=== PATIENT | female | born 1965 | race Native Hawaiian/Other Pacific Islander ===

== ENCOUNTER 2021-01-01 09:57 | Outpatient (REF) | payer OTHER, SELFPAY ==
[2021-01-01 12:12] LABS: TSH reflex Free T4 1.97 uIU/mL (0.32-4.0)
[2021-01-01 12:14] LABS: Alanine Aminotransferase 26 U/L (0-31); Albumin Level 4.4 g/dL (3.5-5.0); Alkaline Phosphatase 127 U/L (39-117); Anion Gap 16 (12-20); Aspartate Amino Transferase 35 U/L (5-31); Bilirubin Total 0.7 mg/dL (0.0-1.0); Blood Urea Nitrogen 10 mg/dL (9-16); Calcium 9.7 mg/dL (8.4-10.2); Carbon Dioxide 23 mmol/L (22-29); Chloride 106 mmol/L (96-108); Cholesterol 252 mg/dL; Estimated Glomerular Filt Rate > 60; Glucose Fasting 89 mg/dL (60-99); HDL Cholesterol 48 mg/dL; LDL Cholesterol Calculated 182 mg/dl; Potassium 4.4 mmol/L (3.3-5.1); Sodium 141 mmol/L (135-145); Total Protein 8.2 g/dL (6.5-8.0); Triglycerides 114 mg/dL
== END 2021-01-01 09:58 | disposition home or self-care (01) ==
LOC: HO.HMGCLDS 09:57
PROVIDERS: PCP Nurse Practitioner Family; Visit Provider Nurse Practitioner Family
DX: E78.5 Hyperlipidemia, unspecified (principal); K29.70 Gastritis, unspecified, without bleeding
CPT/HCPCS: 36415; 80053; 80061; 84443

== ENCOUNTER 2021-01-11 16:10 | Outpatient (REF) | payer OTHER, SELFPAY ==
[2021-01-11 17:20] LABS: Gamma Glutamyl Transpeptidase 76 U/L (7-33)
== END 2021-01-11 16:11 | disposition home or self-care (01) ==
LOC: HO.LAB 16:10
PROVIDERS: PCP Nurse Practitioner Family; Visit Provider Nurse Practitioner Family
DX: R74.8 Abnormal levels of other serum enzymes (principal)
CPT/HCPCS: 36415; 82977

== ENCOUNTER 2021-01-21 08:06 | Outpatient (REF) | payer OTHER, SELFPAY ==
--- NOTE | ~2021-01-21 | US_ITS ---
EXAMINATION: US ABDOMEN COMPLETE CLINICAL INFORMATION: Abnormal elevated liver serum enzymes. COMPARISON: CT abdomen and pelvis 11/14/2013. TECHNIQUE: Real-time imaging of the abdominal viscera. FINDINGS: PANCREAS: Normal. ABDOMINAL AORTA: The proximal, mid, and distal segments are normal in caliber. INFERIOR VENA CAVA: Visualized portions are normal. LIVER: Normal. The liver is normal in size. The liver contour is normal. Parenchymal echogenicity is normal. No focal hepatic lesion. There is no intrahepatic biliary duct dilatation seen. GALLBLADDER: Surgically absent. COMMON BILE DUCT: Normal in caliber measuring 0.3 cm in diameter. RIGHT KIDNEY: There is an echogenic stone lower pole measuring 0.30 x 0.24 x 0.40 cm. No hydronephrosis or focal parenchymal lesions. The kidney measures 9.4 cm in maximum dimension. LEFT KIDNEY: There are multiple small echogenic non-shadowing, non-twinkle foci seen. No hydronephrosis. No renal calculi or focal parenchymal lesions. The kidney measures 9.3 cm in maximum dimension. SPLEEN: Normal. The spleen measures 7.4 cm in maximum dimension. FREE FLUID: None. US/US abdomen complete IMPRESSION: Nonobstructive echogenic 4 mm calculi lower pole right kidney. This was visualized on the previous CT abdomen exam 11/14/2013. Several multiple echogenic foci in the left kidney, question vascular calcifications or tiny stones. The rest of the abdominal ultrasound is unremarkable.
== END 2021-01-21 08:07 | disposition home or self-care (01) ==
LOC: HO.HMGCX 08:06
PROVIDERS: PCP Nurse Practitioner Family; Visit Provider Nurse Practitioner Family
DX: R74.8 Abnormal levels of other serum enzymes (principal)
CPT/HCPCS: 76700

== ENCOUNTER → 2021-01-27 11:43 | Outpatient (BNVA) | payer OTHER, SELFPAY | PROVIDERS: PCP Nurse Practitioner Family; Visit Provider Urology ==

== ENCOUNTER 2021-02-26 14:10 | Outpatient (REF) | payer OTHER, SELFPAY ==
[2021-02-26 16:46] LABS: Alanine Aminotransferase 32 U/L (0-31); Albumin Level 4.2 g/dL (3.5-5.0); Alkaline Phosphatase 175 U/L (39-117); Aspartate Amino Transferase 30 U/L (5-31); Bilirubin Direct < 0.2 mg/dL (0.0-0.5); Bilirubin Total 0.4 mg/dL (0.0-1.0); Total Protein 7.8 g/dL (6.5-8.0)
== END 2021-02-26 14:11 | disposition home or self-care (01) ==
LOC: HO.HMGCLDS 14:10
PROVIDERS: PCP Nurse Practitioner Family; Visit Provider Nurse Practitioner Family
DX: R74.8 Abnormal levels of other serum enzymes (principal)
CPT/HCPCS: 36415; 80076

== ENCOUNTER 2021-07-20 16:22 | Outpatient (REF) | payer OTHER, SELFPAY ==
--- NOTE | ~2021-07-20 | US_ITS ---
EXAMINATION: US RETROPERITONEAL LIMITED (RENAL ONLY) CLINICAL INFORMATION: Calculus of kidney. COMPARISON: Ultrasound abdomen complete dated 01/21/2021. CT abdomen and pelvis without contrast dated 11/14/2013. TECHNIQUE: Real-time imaging of the kidneys. FINDINGS: RIGHT KIDNEY: 9.0 x 4.3 x 4.9 cm (SAG x AP x TRV). The kidney is normal in size, contour, and echogenicity. Renal cortical thickness is normal. There is a 4 mm stone in the lower pole. No focal parenchymal lesions or hydronephrosis. LEFT KIDNEY: 9.1 x 5.4 x 4.6 cm (SAG x AP x TRV). The kidney is normal in size, contour, and echogenicity. Renal cortical thickness is normal. No calculi or focal parenchymal lesions. No hydronephrosis. US/US renal BI IMPRESSION: Right renal stone.
== END 2021-07-20 16:23 | disposition home or self-care (01) ==
LOC: HO.US 16:22
PROVIDERS: PCP Nurse Practitioner Family; Visit Provider Urology
DX: N20.0 Calculus of kidney (principal)
CPT/HCPCS: 76775

== ENCOUNTER 2021-10-29 16:32 | Outpatient (REF) | payer OTHER, SELFPAY ==
[2021-10-29 17:17] LABS: Influenza A PCR NEGATIVE (Negative); Influenza B PCR NEGATIVE (Negative); Resp Syncy Virus RNA Qual PCR NEGATIVE (Negative); SARS COV2 PCR INHOUSE NEGATIVE (Negative)
== END 2021-10-29 16:33 | disposition home or self-care (01) ==
LOC: HO.LNP 16:32
PROVIDERS: Visit Provider Internal Medicine
DX: Z20.822 Contact with and (suspected) exposure to COVID-19 (principal); R43.9 Unspecified disturbances of smell and taste
CPT/HCPCS: 0241U

== ENCOUNTER → 2021-12-09 08:35 | Outpatient (BNVA) | payer OTHER, SELFPAY | PROVIDERS: PCP Nurse Practitioner Family ==

== ENCOUNTER 2022-04-21 13:42 | Outpatient (REF) | payer OTHER, SELFPAY ==
--- NOTE | ~2022-04-21 | XR_ITS ---
EXAMINATION: XR CHEST CLINICAL INFORMATION: Cough COMPARISON: Rib radiograph from 12/19/2019 TECHNIQUE: 2 views of the chest were obtained. FINDINGS: Stable elevation left hemidiaphragm. No pneumothorax. Trachea is midline. No pneumothorax. Cardiomediastinal silhouette is not enlarged. No large pleural effusion. Degenerative changes of the thoracolumbar spine. Surgical clips in the right upper quadrant abdomen. Soft tissues are unremarkable. XR/XR chest 2V IMPRESSION: No acute cardiopulmonary process.
[2022-04-21 14:09] LABS: Binax Internal Control QC Valid; Binax Now Covid-19 Ag Negative (Negative); Binax Performed by: HO.BONILM
[2022-04-21 16:24] LABS: Hematocrit 38.1 % (37.0-47.0); Hemoglobin 12.3 g/dl (12.0-16.0); Mean Corpuscular HGB Conc 32.3 g/dl (31.0-35.0); Mean Corpuscular Hemoglobin 27.4 pg (27.0-33.0); Mean Corpuscular Volume 84.9 fL (80.0-98.0); Mean Platelet Volume 11.9 fL (9.4-12.3); Platelet Count 241 X10*3/uL (160-400); Red Blood Count 4.49 X10*6/uL (4.20-5.50); Red Cell Distribution Width 14.4 % (11.0-16.0); White Blood Count 7.6 X10*3/uL (4.8-10.8)
[2022-04-21 16:39] LABS: Anion Gap 13 (12-20); Blood Urea Nitrogen 16 mg/dL (9-16); Calcium 9.7 mg/dL (8.4-10.2); Carbon Dioxide 26 mmol/L (22-29); Chloride 102 mmol/L (96-108); Estimated Glomerular Filt Rate > 60; Glucose Random 102 mg/dL (60-115); Potassium 4.2 mmol/L (3.3-5.1); Sodium 137 mmol/L (135-145)
[2022-04-21 17:01] LABS: Thyroid Stimulating Hormone 1.47 uIU/mL (0.32-4.0)
== END 2022-04-21 13:43 | disposition home or self-care (01) ==
LOC: HO.HMGCX 13:42
PROVIDERS: Internal Medicine; PCP Nurse Practitioner Family; Visit Provider Nurse Practitioner Family
DX: Z20.822 Contact with and (suspected) exposure to COVID-19 (principal); R05.9 Cough, unspecified; J06.9 Acute upper respiratory infection, unspecified
CPT/HCPCS: 71046; 80048; 84443; 85027; 87811; C9803

== ENCOUNTER 2022-06-22 13:14 | Outpatient (REF) | payer OTHER, SELFPAY ==
[2022-06-22 16:29] LABS: MANUAL DIFF FLAG NO
[2022-06-22 16:39] LABS: Basophils Absolute Auto 0.1 X10*3/uL (0.0-0.2); Basophils Percent Auto 0.8 % (0-2); Eosinophils Absolute Auto 0.2 X10*3/uL (0.0-0.4); Eosinophils Percent Auto 2.3 % (0-4); Hematocrit 40.1 % (37.0-47.0); Hemoglobin 12.8 g/dl (12.0-16.0); Imm Gran Abs Auto 0.02 X10*3/uL (0.00-0.03); Imm Gran Pct Auto 0.3 % (0.0-0.4); Lymphocytes Absolute Auto 2.5 X10*3/uL (1.2-4.9); Lymphocytes Percent Auto 34.9 % (20-40); Mean Corpuscular HGB Conc 31.9 g/dl (31.0-35.0); Mean Corpuscular Hemoglobin 26.6 pg (27.0-33.0); Mean Corpuscular Volume 83.2 fL (80.0-98.0); Mean Platelet Volume 11.6 fL (9.4-12.3); Monocytes Absolute Auto 0.6 X10*3/uL (0.1-1.2); Monocytes Percent Auto 7.6 % (2-11); Neutrophils Absolute Auto 3.9 x10*3/uL (2.0-8.3); Neutrophils Percent Auto 54.1 % (45-73); Platelet Count 249 X10*3/uL (160-400); Red Blood Count 4.82 X10*6/uL (4.20-5.50); Red Cell Distribution Width 14.8 % (11.0-16.0); White Blood Count 7.3 X10*3/uL (4.8-10.8)
[2022-06-22 17:02] LABS: Alanine Aminotransferase 17 U/L (0-31); Albumin Level 4.4 g/dL (3.5-5.0); Alkaline Phosphatase 92 U/L (39-117); Anion Gap 14 (12-20); Aspartate Amino Transferase 18 U/L (5-31); Bilirubin Total 0.4 mg/dL (0.0-1.0); Blood Urea Nitrogen 16 mg/dL (9-16); Calcium 9.7 mg/dL (8.4-10.2); Carbon Dioxide 25 mmol/L (22-29); Chloride 104 mmol/L (96-108); Estimated Glomerular Filt Rate > 60; Glucose Random 86 mg/dL (60-115); Potassium 4.3 mmol/L (3.3-5.1); Sodium 139 mmol/L (135-145); Total Protein 7.9 g/dL (6.5-8.0)
[2022-06-22 17:12] LABS: TSH reflex Free T4 1.54 uIU/mL (0.32-4.0)
[2022-06-22 17:47] LABS: Folate > 20.0 ng/mL (> or = 4.0); Vitamin B12 533 pg/mL (200-900)
[2022-06-28 06:15] LABS: Vitamin B6 22.4 ng/mL (2.1-21.7)
== END 2022-06-22 13:15 | disposition home or self-care (01) ==
LOC: HO.HMGCLDS 13:14
PROVIDERS: PCP Nurse Practitioner Family; Visit Provider Nurse Practitioner Family
DX: L65.9 Nonscarring hair loss, unspecified (principal)
CPT/HCPCS: 36415; 80053; 82607; 82746; 84207; 84443; 85025

== ENCOUNTER 2022-06-30 10:49 | Outpatient (REF) | payer OTHER, SELFPAY | END 2022-06-30 10:50 | disposition home or self-care (01) | LOC: HO.HMGCLDS 10:49 | PROVIDERS: PCP Nurse Practitioner Family; Visit Provider Nurse Practitioner Family | DX: Z13.89 Encounter for screening for other disorder (principal) ==

== ENCOUNTER 2022-07-13 16:24 | Outpatient (REF) | payer OTHER, SELFPAY ==
--- NOTE | ~2022-07-13 | US_ITS ---
EXAMINATION: US RETROPERITONEAL LIMITED (RENAL ONLY) CLINICAL INFORMATION: Calculus of kidney. COMPARISON: Renal ultrasound 07/20/2021. Ultrasound abdomen complete 01/21/2021. CT abdomen and pelvis 11/14/2013. TECHNIQUE: Real-time imaging of the kidneys. FINDINGS: RIGHT KIDNEY: 9.2 x 3.3 x 4.3 cm (SAG x AP x TRV). The kidney is normal in size, contour, and echogenicity. Renal cortical thickness is normal. Echogenic nonobstructive stone in the lower pole measuring 3 x 3 mm. There is trace fullness of the kidney pelvis. No focal parenchymal lesions or hydronephrosis. LEFT KIDNEY: 9.5 x 6.1 x 4.3 cm (SAG x AP x TRV). The kidney is normal in size, contour, and echogenicity. Renal cortical thickness is normal. No calculi or focal parenchymal lesions. No hydronephrosis. US/US renal BI IMPRESSION: Nonobstructive echogenic stone lower pole right kidney measuring 3 x 3 mm. No caliectasis or hydronephrosis. The left kidney is unremarkable.
== END 2022-07-13 16:25 | disposition home or self-care (01) ==
LOC: HO.US 16:24
DX: N20.0 Calculus of kidney (principal)
CPT/HCPCS: 76775

== ENCOUNTER 2022-09-27 10:45 | Outpatient (REF) | payer OTHER, SELFPAY ==
[2022-09-27 14:19] LABS: Appearance Urine Clear; Color Urine Yellow; Glucose Urine UA Negative (Negative); Leukocyte Esterase Urine Small (1+) (Negative); Nitrite Urine Negative (Negative); UMIC TRIGGER UACC YES; Urine Blood Negative (Negative); Urine Ketones Negative (Negative); Urine Protein Negative (Neg-Trace)
[2022-09-27 14:24] LABS: Bacteria Urine 1+ (None Seen); Hyaline Casts Urine 0-2 /LPF (0-2); Squamous Epithelial Cell Urine 0-2 /HPF (0-2); UACC Culture Trigger YES; WBC Urine >50 /HPF (0-5)
[2022-09-27 14:31] LABS: MANUAL DIFF FLAG NO
[2022-09-27 14:40] LABS: Basophils Absolute Auto 0.1 X10*3/uL (0.0-0.2); Basophils Percent Auto 0.7 % (0-2); Eosinophils Absolute Auto 0.2 X10*3/uL (0.0-0.4); Eosinophils Percent Auto 2.5 % (0-4); Hematocrit 42.3 % (37.0-47.0); Hemoglobin 13.3 g/dl (12.0-16.0); Imm Gran Abs Auto 0.02 X10*3/uL (0.00-0.03); Imm Gran Pct Auto 0.3 % (0.0-0.4); Lymphocytes Absolute Auto 2.4 X10*3/uL (1.2-4.9); Lymphocytes Percent Auto 33.3 % (20-40); Mean Corpuscular HGB Conc 31.4 g/dl (31.0-35.0); Mean Corpuscular Hemoglobin 26.3 pg (27.0-33.0); Mean Corpuscular Volume 83.6 fL (80.0-98.0); Mean Platelet Volume 11.5 fL (9.4-12.3); Monocytes Absolute Auto 0.5 X10*3/uL (0.1-1.2); Neutrophils Absolute Auto 4.1 x10*3/uL (2.0-8.3); Neutrophils Percent Auto 56.2 % (45-73); Platelet Count 256 X10*3/uL (160-400); Red Blood Count 5.06 X10*6/uL (4.20-5.50); Red Cell Distribution Width 14.9 % (11.0-16.0); White Blood Count 7.3 X10*3/uL (4.8-10.8)
[2022-09-27 14:58] LABS: Alanine Aminotransferase 17 U/L (0-31); Albumin Level 4.5 g/dL (3.5-5.0); Alkaline Phosphatase 109 U/L (39-117); Anion Gap 15 (12-20); Aspartate Amino Transferase 18 U/L (5-31); Bilirubin Total 0.6 mg/dL (0.0-1.0); Blood Urea Nitrogen 14 mg/dL (9-16); Calcium 9.7 mg/dL (8.4-10.2); Carbon Dioxide 26 mmol/L (22-29); Chloride 104 mmol/L (96-108); Cholesterol 255 mg/dL; Estimated Glomerular Filt Rate > 60; Glucose Fasting 82 mg/dL (60-99); HDL Cholesterol 54 mg/dL; LDL Cholesterol Calculated 179 mg/dl; Potassium 4.4 mmol/L (3.3-5.1); Sodium 141 mmol/L (135-145); Triglycerides 112 mg/dL
[2022-09-27 15:11] LABS: TSH reflex Free T4 1.17 uIU/mL (0.32-4.0)
== END 2022-09-27 10:46 | disposition home or self-care (01) ==
LOC: HO.HMGCLDS 10:45
PROVIDERS: PCP Nurse Practitioner Family; Visit Provider Nurse Practitioner Family
DX: E78.5 Hyperlipidemia, unspecified (principal)
CPT/HCPCS: 36415; 80053; 80061; 81001; 84443; 85025; 87086; 87088; 87186

== ENCOUNTER 2022-10-28 13:20 | Outpatient (REF) | payer OTHER, SELFPAY ==
--- NOTE | ~2022-10-28 | MM_ITS ---
EXAMINATION: MM SCREENING DIGITAL BREAST TOMOSYNTHESIS, BILATERAL CLINICAL INFORMATION: Screening. Asymptomatic. The lifetime risk of breast cancer based on the Tyrer-Cuzick Model is 7%. COMPARISON: Mammography: 01/28/2017, 10/08/2014 TECHNIQUE: Digital breast tomosynthesis is performed in both the craniocaudal and mediolateral oblique views along with computer-aided detection (CAD). Synthesized 2D images are generated from the tomosynthesis. FINDINGS: There are scattered areas of fibroglandular density (ACR BI-RADS breast composition Category b). There are no significant masses, abnormal calcifications, or other abnormalities. Breast tissue composition borders on heterogeneously dense. There is no developing density or architectural abnormality. There are incidental intramammary nodes posterior upper outer right breast again noted. Skin contours are smooth. MM/MM tomosynthesis screening BI IMPRESSION: No mammographic evidence of malignancy. ASSESSMENT: BI-RADS 2: Benign RECOMMENDATION: Routine annual mammography screening. This patient's information was entered into a reminder system with a target due date for their next mammogram.
== END 2022-10-28 13:21 | disposition home or self-care (01) ==
LOC: HO.MAMMO 13:20
PROVIDERS: PCP Nurse Practitioner Family; Visit Provider Nurse Practitioner Family
DX: Z12.31 Encounter for screening mammogram for malignant neoplasm of breast (principal)
CPT/HCPCS: 77063; 77067

== ENCOUNTER 2023-03-22 10:39 | Outpatient (REF) | payer OTHER, SELFPAY ==
[2023-03-22 14:24] LABS: Appearance Urine Clear; Color Urine Yellow; Glucose Urine UA Negative (Negative); Leukocyte Esterase Urine Trace (Negative); Nitrite Urine Negative (Negative); Specific Gravity - Urine <= 1.005 (1.005-1.025); UMIC TRIGGER UA YES; Urine Blood Negative (Negative); Urine Ketones Negative (Negative); Urine Protein Negative (Neg-Trace)
[2023-03-22 14:32] LABS: Cholesterol 163 mg/dL; HDL Cholesterol 46 mg/dL; LDL Cholesterol Calculated 88 mg/dl; Triglycerides 147 mg/dL
[2023-03-22 14:35] LABS: Bacteria Urine None Seen (None Seen); Hyaline Casts Urine 0-2 /LPF (0-2); RBC Urine 0-2 /HPF (0-2); Squamous Epithelial Cell Urine 0-2 /HPF (0-2); WBC Urine 0-5 /HPF (0-5)
== END 2023-03-22 10:40 | disposition home or self-care (01) ==
LOC: HO.HMGCLDS 10:39
PROVIDERS: PCP Nurse Practitioner Family; Visit Provider Nurse Practitioner Family
DX: R35.0 Frequency of micturition (principal); E78.5 Hyperlipidemia, unspecified
CPT/HCPCS: 36415; 80061; 81001; 87086; 87088; 87186

== ENCOUNTER 2023-05-12 12:13 | Outpatient (REF) | payer OTHER, SELFPAY ==
--- NOTE | ~2023-05-12 | XR_ITS ---
EXAMINATION: XR SHOULDER, RIGHT CLINICAL INFORMATION: Strain, pain COMPARISON: None available. TECHNIQUE: Three views of the right shoulder. FINDINGS: The humeral head is well positioned over the intact glenoid. Glenohumeral joint space is normal. No arthritic deformity, fracture or subluxation. Acromioclavicular joint is normal. The subacromial space is normal. Scapula is normal. No calcium deposition within rotator cuff tendons. The visualized portion of the right lung is normal. XR/XR shoulder RT min 2V IMPRESSION: Normal right shoulder.
== END 2023-05-12 12:14 | disposition home or self-care (01) ==
LOC: HO.HMGCX 12:13
PROVIDERS: PCP Nurse Practitioner Family; Visit Provider Nurse Practitioner Family
DX: S46.911D Strain of unspecified muscle, fascia and tendon at shoulder and upper arm level, right arm, subsequent encounter (principal)
CPT/HCPCS: 73030

== ENCOUNTER 2023-09-25 15:18 | Outpatient (AMB) | payer OTHER, SELFPAY ==
--- NOTE | 2023-09-25 15:11 | MHC.PC.OV ---
Intake Visit Reasons: Covid Symptoms/ frequent Urination [phone] Intake Note: Covid positive since Monday. And boils on scalp that have been duplicating quickly. vaginal discharge thats been on and off for about 1 week, frequent urination and not sexually active. Allergies No Known Allergies Allergy (Verified 09/25/23 15:14) Medication List - Last Reconciled 09/25/23 by ALICIA Smtyh cyclobenzaprine 10 mg PO BEDTIME PRN sulfamethoxazole-trimethoprim 800-160 mg (Bactrim DS) 1 tab PO BID 3 days Tobacco use date assessed: 03/22/23 HPI Covid Symptoms/ frequent Urination [phone] HPI Details Pt c/o urinary frequency and dysuria. She denies any current fever, chills, hematuria, and flank pain. Will order UA and culture, though pt currently has COVID and cannot go to the lab. Will send bactrim. Pt tested positive for COVID on Monday. She reports doing better overall. 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 David Austin, Tita Richey, Isra Cordero and colleagues, with an educational chelsea from [employer]. Review of Systems Const Reports as per HPI Physical exam (Primary Care) Tobacco/Smoking Status: Tobacco use Status Tobacco use date assessed 03/22/23 09/25/23 15:17 Patient Tobacco Use Status Never used Tobacco 09/25/23 15:17 e-Cigarette/Vaping Use Never Used 09/25/23 15:17 Thrive Assessment: Date of Thrive Assessment Date Thrive assessed 06/23/22 09/25/23 15:17 Const General: cooperative Orientation/consciousness: patient oriented x3 Neuro General: patient oriented x3 Psych Appearance: grossly normal Mental Status: mental status grossly normal Speech and movement: Clear speech present Affect: normal affect Attitude: cooperative Thought process: Normal thought process present Thought content: Normal thought content present Insight: Good insight present (Psych) Judgement: Good judgement present (Psych) Telehealth Telehealth Location of provider rendering services: practice address Location of patient: address on file Patient Identification confirmed using: Name, : Yes Telehealth method: video Patient verbally consented to treatment: Yes Patient verbally consented to billing insurance company: Yes Patient informed of any privacy concerns related to visit: Yes Minutes spent on Phone/Video with Pt.: 10 Assessment and Plan Assessment & Plan (1) Urinary frequency: Code(s): R35.0 - Frequency of micturition Plan: UA/culture ordered, bactrim sent Plan The patient agreed to the use of a medical lab director for this encounter. Scribed for ALICIA Umanzor by Mago Segal medical lab director, on 09/25/2023 at 15:30 EST. Orders: Orders UA w Microscopic Today R35.0 - Frequency of micturition Urine Culture Today R35.0 - Frequency of micturition Medications: New sulfamethoxazole-trimethoprim 800-160 mg (Bactrim DS) 1 tab PO BID 6 tabs 0RF 3 days Coding Level of Care Code Tele Est Pt Level 3 (74542) Diagnoses Urinary frequency R35.0
== END 2023-09-25 16:50 | disposition home or self-care (01) ==
LOC: HO.HMGC 15:18
PROVIDERS: PCP Nurse Practitioner Family; Visit Provider Nurse Practitioner Family
DX: R35.0 Frequency of micturition (principal)
CPT/HCPCS: 99213

== ENCOUNTER 2023-10-02 14:09 | Outpatient (REF) | payer OTHER, SELFPAY ==
--- NOTE | ~2023-10-02 | XR_ITS ---
EXAMINATION: XR ABDOMEN KUB CLINICAL INDICATION: Renal calculi. COMPARISON: Renal ultrasound 07/13/2022. TECHNIQUE: AP view of the abdomen. FINDINGS: Surgical clips are present in the gallbladder fossa. There is a 3 mm sized calcification overlying the lower pole of the right kidney which could represent a 3 mm calculus seen on the 07/13/2022 ultrasound in the same location. The bowel gas pattern is normal with no evidence of ileus or obstruction. No unusual soft tissue calcifications are noted. The bones are unremarkable. XR/XR KUB IMPRESSION: Question of a 3 mm calculus in the lower pole of the right kidney.
[2023-10-02 15:19] LABS: Appearance Urine Clear; Color Urine Yellow; Glucose Urine UA Negative (Negative); Leukocyte Esterase Urine Trace (Negative); Nitrite Urine Negative (Negative); Specific Gravity - Urine <= 1.005 (1.005-1.025); UMIC TRIGGER UA YES; Urine Blood Negative (Negative); Urine Ketones Negative (Negative); Urine Protein Negative (Neg-Trace)
[2023-10-02 15:25] LABS: Bacteria Urine None Seen (None Seen); Hyaline Casts Urine 0-2 /LPF (0-2); RBC Urine 0-2 /HPF (0-2); Squamous Epithelial Cell Urine 0-2 /HPF (0-2); WBC Urine 0-5 /HPF (0-5)
== END 2023-10-02 14:10 | disposition home or self-care (01) ==
LOC: HO.LAB 14:09
PROVIDERS: PCP Nurse Practitioner Family; Visit Provider Urology
DX: N20.0 Calculus of kidney (principal); R35.0 Frequency of micturition
CPT/HCPCS: 74018; 81001; 87086; 87088; 87186

== ENCOUNTER 2023-10-06 09:28 | Outpatient (AMB) | payer OTHER, SELFPAY ==
--- NOTE | 2023-10-06 09:37 | A.OFFVIS_ITS ---
Intake Intake Visit Reasons: 1 yr nephrolithiasis follow up with KUB Intake Note: Patient presents today for a follow-up on Nephrolithiasis and KUB Results: Meds- None Allergies to Antibiotic- No Known Allergies Blood Thinner- None [employer] Manager Required: No Accompanied by: Self / Same As Patient Allergies No Known Allergies Allergy (Verified 10/06/23 09:47) HPI HPI Comments History of Present Illness Details Jessica is a 58-year-old female who presents today to the office for a follow-up. 10/06/2023? She is followed today for kidney stones. She was last seen by [employer] PARAPROFESSIONAL, Kamlesh Estrada for nephrolithiasis on 12/09/2021. Patient states that she is not on any medications at this time. She states that she is drinking 2 to 2.5 L of water daily. She also adds lemon to the water. Patient denies any urinary symptoms at this time Reviewed KUB -Xray - 10/02/23-- Right kidney 3 mm stone - unchanged from prior renal US 10/06/2023: Plan: Continue monitoring kidney stones. Follow-up in one year and will recheck KUB X-ray at that time. 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 Current occupational exposures/hazards: No Cognitive needs: No Hearing needs: No Vision needs: No Review of Systems Const All systems reviewed & are unremarkable except as noted in HPI and below Reports as per HPI Eyes Reports no additional complaints ENT Reports no additional complaints Card Denies dyspnea Resp Denies cough and Denies dyspnea GI Reports no additional complaints Reports no additional complaints Musc Reports no additional complaints Skin/Breast Denies rash and Denies unusual bruising Neuro Reports no additional complaints Psych Reports no additional complaints Endo Reports no additional complaints Piter/Lymph Reports no additional complaints Aller/Immun Reports no additional complaints Results AMB Urinalysis, Automated UA Leukoctes 0 Ernesto/uL Last Edit by Blaire Paulson, [facility] on 10/06/23 10:14 UA Nitrite Negative Last Edit by Blaire Paulson, [facility] on 10/06/23 10:14 UA Urobilinogen 0.2 mg/dL Last Edit by Blaire Paulson, A on 10/06/23 10:1 4 UA Protein 6.0 mg/dL Last Edit by Blaire Paulson [facility] on 10/06/23 10:14 UA pH 6.0 Last Edit by Blaire Paulson, [facility] on 10/06/23 10:14 UA Blood 0 Pascual/uL Last Edit by Blaire Paulson [facility] on 10/06/23 10:14 UA Specific Busby 1.010 Last Edit by Blaire Paulson [facility] on 10/06/23 10: 14 UA Ketone Negative Last Edit by Blaire Paulson, [facility] on 10/06/23 10:14 UA Bilirubin 0 mg/dL Last Edit by Blaire Paulson [facility] on 10/06/23 10:14 UA Glucose 0 mg/dL Last Edit by Blaire Paulson, [facility] on 10/06/23 10:14 Results Reviewed Results Reviewed: Laboratory Last Values Urine pH (Auto) 6.0 10/06/23 10:11 Specific Busby (Auto) 1.010 10/06/23 10:11 Urine Protein (Auto) 6.0 mg/dL 10/06/23 10:11 Glucose (UA)(Auto) 0 mg/dL 10/06/23 10:11 Urine Ketones (Auto) Negative 10/06/23 10:11 Urine Blood (Auto) 0 Pascual/uL 10/06/23 10:11 Urine Nitrite (Auto) Negative 10/06/23 10:11 Urine Bilirubin (Auto) 0 mg/dL 10/06/23 10:11 Urine Urobilinogen (Auto) 0.2 mg/dL 10/06/23 10:11 Leukocyte Esterase (Auto) 0 Ernesto/uL 10/06/23 10:11 Date of Service: 10/02/23 EXAMINATION: XR ABDOMEN KUB CLINICAL INDICATION: Renal calculi. COMPARISON: Renal ultrasound 07/13/2022. FINDINGS: Surgical clips are present in the gallbladder fossa. There is a 3 mm sized calcification overlying the lower pole of the right kidney which could represent a 3 mm calculus seen on the 07/13/2022 ultrasound in the same location. The bowel gas pattern is normal with no evidence of ileus or obstruction. No unusual soft tissue calcifications are noted. The bones are unremarkable. IMPRESSION: Question of a 3 mm calculus in the lower pole of the right kidney. Assessment & Plan Assessment & Plan (1) Kidney stone: Code(s): N20.0 - Calculus of kidney Plan Continue monitoring kidney stones. Follow-up in one year and will recheck KUB X-ray at that time. Orders: Orders AMB Urinalysis Automated Today Z13.9 - Encounter for screening, unspecified Patient Instructions: The patient had an opportunity to ask questions regarding treatment plan. All questions were answered. Imaging, Laboratory studies and physical exam results were discussed and reviewed in detail. No major barriers to understanding were identified. The patient expressed understanding and agreement with the above treatment plan. The patient is aware they should contact our office by phone for worsening of their current condition or the appearance of new symptoms. Compliance is encouraged with any medications and followup testing that is ordered. It is a privilege to be allowed the opportunity to participate in the urologic care of your patient. If you have any questions or concerns regarding treatment for the above conditions please do not hesitate to contact me. The office telephone contact is [phone]. This note is constructed in part using voice recognition software. While every effort has been made to ensure accuracy toe sewer errors may have been included. Yours sincerely, Harsha Deng MD Coding Level of Care Code Est Pt Level 3 (84300) Diagnoses Kidney stone N20.0
== END 2023-10-06 10:41 | disposition home or self-care (01) ==
PROVIDERS: Visit Provider Urology
DX: Z13.9 Encounter for screening, unspecified (principal); N20.0 Calculus of kidney
CPT/HCPCS: 99213

== ENCOUNTER → 2023-10-06 09:28 | Outpatient (BNVA) | payer OTHER, SELFPAY | PROVIDERS: Visit Provider Urology | DX: N20.0 Calculus of kidney (principal); R74.8 Abnormal levels of other serum enzymes | CPT/HCPCS: 81003 ==

== ENCOUNTER 2023-11-01 13:43 | Outpatient (REF) | payer OTHER, SELFPAY | END 2023-11-01 13:44 | disposition home or self-care (01) | LOC: HO.MAMMO 13:43 | PROVIDERS: PCP Nurse Practitioner Family; Visit Provider Nurse Practitioner Family | DX: Z12.31 Encounter for screening mammogram for malignant neoplasm of breast (principal) | CPT/HCPCS: 77063; 77067 ==

== ENCOUNTER → 2023-11-01 14:00 | Outpatient (BNV) | payer OTHER, SELFPAY | PROVIDERS: PCP Nurse Practitioner Family; Visit Provider Radiology Diagnostic Radiology | DX: Z12.31 Encounter for screening mammogram for malignant neoplasm of breast (principal) | CPT/HCPCS: 77063; 77067 ==

== ENCOUNTER 2024-01-03 14:07 | Outpatient (AMB) | payer OTHER, SELFPAY ==
--- NOTE | 2024-01-03 15:10 | AM.OFFWIN_ITS ---
Intake Vital Signs 01/03/24 15:16 Height 5 ft 3 in Weight 150 lb BMI 26.6 BP 112/74 Blood Pressure Location Rt brachial Position Sitting Pulse 94 Pulse Source Pulse Oximeter Temp 97.7 F Temp Source Oral Pulse Oximetry (%) 96 Oxygen Delivery Method Room Air Intake Visit Reasons: EP acid reflux/losing voice [phone] Patient Tobacco Use Status: Never used Tobacco Allergies No Known Allergies Allergy (Verified 01/03/24 15:37) Medication List - Last Reconciled 01/03/24 by Nicolas Luis MD cefuroxime axetil 500 mg PO BID 7 days fluconazole 150 mg PO Q3D 2 doses sulfamethoxazole-trimethoprim 800-160 mg (Bactrim DS) 1 tab PO BID 3 days HPI EP acid reflux/losing voice [phone] HPI Details 58-year-old female presents to the [facility] for a sick visit. Patient is complaining of a sore throat, belching and epigastric discomfort for the past month. Symptoms started after she returned from vacation. No fevers or chills. No nausea or vomiting. 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 If symptoms do not improve, follow-up here or call PCP for a GI appointment. Coding Level of Care Code Est Pt Level 3 (69338) Diagnoses GERD (gastroesophageal reflux disease) K21.9
[2024-01-03 15:16] VITALS: BP 112/74; PULSE 94; TEMP 36.5; O2SAT 96; BMI 26.6
== END 2024-01-03 16:35 | disposition home or self-care (01) ==
PROVIDERS: PCP Nurse Practitioner Family; Visit Provider Internal Medicine
DX: K21.9 Gastro-esophageal reflux disease without esophagitis (principal)
CPT/HCPCS: 99213

== ENCOUNTER 2024-01-25 13:12 | Outpatient (AMB) | payer OTHER, SELFPAY ==
[2024-01-25 13:19] VITALS: BP 118/72; PULSE 68; O2SAT 98; BMI 27.1
--- NOTE | 2024-01-25 13:19 | MHC.PC.OV ---
Vital Signs 01/25/24 13:19 Height 5 ft 3 in Weight 153 lb BMI 27.1 BP 118/72 Blood Pressure Location Lt brachial Position Sitting Pulse 68 Pulse Source Pulse Oximeter Pulse Oximetry (%) 98 Oxygen Delivery Method Room Air Intake Visit Reasons: Annual PE Intake Note: pt is here for annual exam Director Broadcast Required: No Accompanied by: Self / Same As Patient Allergies No Known Allergies Allergy (Verified 01/25/24 17:28) Medication List - Last Reconciled 01/25/24 by ALICIA Smyth pantoprazole 40 mg PO DAILY Tobacco use date assessed: 01/25/24 Dental Screening Dental Screen Date: 01/25/24 Did you have a dental visit in the last 12 months?: Yes Did you have a dental problem in the last 6 months where you did not have access to dental care?: No Was dental information given to patient?: Patient has dentist HPI Annual PE HPI Details Pt is here for a PE. Will order labs. Colon screen is up to date. Mammo is up to date. Has a client support associate. Hx of vitamin D deficiency, will order labs. Pt is a wallace and reports a raspy voice for 2 months since having a viral illness. She has been referred to ENT. Pt also reports increased acid reflux. Will send pantoprazole, ? GERD contributing to raspy voice . 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 1. Little interest or pleasure in doing things: not at all 2. Feeling down, depressed, or hopeless: not at all 3. Trouble falling or staying asleep, or sleeping too much: not at all 4. Feeling tired or having little energy: not at all 5. Poor appetite or overeating: not at all 6. Feeling bad about yourself - or that you are a failure or have let yourself or your family down: not at all 7. Trouble concentrating on things, such as reading the newspaper or watching television: not at all 8. Moving or speaking so slowly that other people could have noticed. Or the opposite - being so fidgety or restless that you have been moving around a lot more than usual: not at all 9. Thoughts that you would be better off or of hurting yourself in some way: not at all Total score: 0 Depression Screening Interpretation: Negative Depression Screening Done: Yes 43586 - PHQ-9 Billing: Yes Source: Developed by Drs. David Austin, Tita Richey, Isra Cordero and colleagues, with an educational chelsea from [employer]. Thrive Questionnaire Date Thrive assessed: 01/25/24 I am a: Patient What is your living situation today?: I have a steady place to live Within the past 12 months, did the food you bought not last and you didn't have the money to get more?: Never true Within the past 12 months, did you worry whether your food would run out before you got money to buy more?: Never true Do you have trouble paying for medicines?: No Do you have trouble getting transportation to medical appointments?: No Do you have trouble paying your heating and electricity bill?: No Do you have trouble taking care of your child, family member or friend?: No Do you have trouble with day-to-day activities such as bathing, preparing meals, shopping, managing finances, etc.?: No Are you currently unemployed and looking for a job?: No Are you interested in more education?: No Please select the resources that you would like help with: None Currently or been in a relationship where the following occur: no concerns reported THRIVE Score: 0 YUMIKO-7 AMB Questionnaire YUMIKO-7 Date YUMIKO - 7 assessed: 01/25/24 Feeling nervous, anxious, or on edge: 0 = Not at all Not being able to stop or control worryin = Not at all Worrying too much about different things: 0 = Not at all Trouble relaxin = Not at all Being so restless that it is hard to sit still: 0 = Not at all Becoming easily annoyed or irritable: 0 = Not at all Feeling afraid as if something awful might happen: 0 = Not at all Total YUMIKO-7 score (0-4 normal; 5-9 mild; 10-14 moderate; 15-21 severe): 0 Source: Developed by Drs. David Austin, Tita Richey, Isra Cordero and colleagues, with an educational chelsea from [employer]. YUMIKO-7 Assessment Billing YUMIKO-7 Assessment Tool: YUMIKO-7 Assessment 78346 Review of Systems Const Denies chills and Denies fever(s) Eyes Denies blurry vision ENT Denies vertigo, Denies dizziness and Denies sore throat Card Denies chest pain at rest, Denies chest pain with activity, Denies diaphoresis, Denies dyspnea and Denies dyspnea on exertion Resp Denies cough, Denies dyspnea, Denies dyspnea on exertion and Denies wheezing GI Denies abdominal pain, Denies melena, Denies hematochezia, Denies constipation, Denies diarrhea and Denies loose stools Denies hematuria Musc Denies numbness and Denies tingling Skin/Breast Denies lesions Neuro Denies vertigo, Denies dizziness, Denies numbness and Denies tingling Psych Denies anxiety, Denies depression, Denies homicidal ideation, Denies suicidal ideation and Denies other (substance abuse) Aller/Immun Denies wheezing Physical exam (Primary Care) Vital Signs: Last Vital Signs Pulse 68 01/25/24 13:19 BP 118/72 01/25/24 13:19 Pulse Ox 98 01/25/24 13:19 Oxygen Delivery Method Room Air 01/25/24 13:19 BMI result Body Mass Index 27.1 Tobacco/Smoking Status: Tobacco use Status Tobacco use date assessed 01/25/24 01/25/24 13:21 Patient Tobacco Use Status Never used Tobacco 01/25/24 13:21 e-Cigarette/Vaping Use Never Used 01/25/24 13:21 PHQ-9: PHQ-9 Score PHQ-9: Total score 0 01/25/24 13:58 Depression Screening Interpretation: Negative Thrive Assessment: Date of Thrive Assessment Date Thrive assessed 01/25/24 01/25/24 13:21 Currently or been in a relationship where the following occur: no concerns reported Const General: cooperative Nutritional Appearance: well nourished Orientation/consciousness: patient oriented x3 HENMT Head: Yes normal to inspection, Yes normocephalic and Yes atraumatic Ears: TM's normal bilaterally Eyes General: appearance normal, both eyes and all related structures Alignment and Position: alignment normal and position normal Neck Neck: Yes normal visual inspection and Yes no lymphadenopathy Thyroid: Thyroid normal Resp Effort & Inspection: normal respiratory effort Auscultation: clear to auscultation bilaterally Cardio Rate: regular rate Rhythm: regular rhythm Heart sounds: S1 normal heart sound present, S2 normal heart sound present and no murmurs GI Palpation (GI): Soft to palpation and nontender Auscultation: normal bowel sounds Skin Rashes: no rashes Neuro General: patient oriented x3, moves all extremities, no focal motor deficits and deep tendon reflexes 2+ bilaterally Romberg Test: Negative Psych Appearance: grossly normal Mental Status: mental status grossly normal Speech and movement: Normal speech and movement present Affect: normal affect Attitude: cooperative Thought process: Normal thought process present Thought content: Normal thought content present Insight: Good insight present (Psych) Judgement: Good judgement present (Psych) Assessment and Plan Assessment & Plan (1) Physical exam: Code(s): Z00.00 - Encounter for general adult medical examination without abnormal findings Plan: Labs ordered (2) Vitamin D deficiency: Code(s): E55.9 - Vitamin D deficiency, unspecified Plan: Labs ordered Plan The patient agreed to the use of a emergency medicine medical director for this encounter. Scribed for ALICIA Umanzor by Mago Segal emergency medicine medical director, on 01/25/2024 at 13:55 EST. Orders: Orders Lipid Panel Today Z00.00 - Encounter for general adult medical examination without abnormal findings Vitamin D 25-OH Total Today E55.9 - Vitamin D deficiency, unspecified Complete Blood Count Auto Diff Today Z00.00 - Encounter for general adult medical examination without abnormal findings Comprehensive [place]. Panel Fast Today Z00.00 - Encounter for general adult medical examination without abnormal findings TSH reflex Free T4 Today Z00.00 - Encounter for general adult medical examination without abnormal findings UA CC w/rflx Micro + Cult Today Z00.00 - Encounter for general adult medical examination without abnormal findings Medications: New pantoprazole 40 mg PO DAILY 30 tabs 3RF Coding Level of Care Code Est Pt Prev Care 40-64y(21746) Diagnoses Physical exam Z00.00 Vitamin D deficiency E55.9 Additional Codes YUMIKO-7 Assessment Billing - YUMIKO-7 Assessment Tool: YUMIKO-7 Assessment 44345 ([id number])
== END 2024-01-25 15:16 | disposition home or self-care (01) ==
PROVIDERS: PCP Nurse Practitioner Family; Visit Provider Nurse Practitioner Family
DX: Z00.00 Encounter for general adult medical examination without abnormal findings (principal); E55.9 Vitamin D deficiency, unspecified
CPT/HCPCS: 99396

== ENCOUNTER 2024-02-06 10:54 | Outpatient (REF) | payer OTHER, SELFPAY ==
[2024-02-06 13:30] LABS: MANUAL DIFF FLAG NO
[2024-02-06 13:47] LABS: Basophils Percent Auto 0.5 % (0-2); Eosinophils Absolute Auto 0.2 X10*3/uL (0.0-0.4); Hematocrit 39.5 % (37.0-47.0); Hemoglobin 12.5 g/dl (12.0-16.0); Imm Gran Abs Auto 0.01 X10*3/uL (0.00-0.03); Imm Gran Pct Auto 0.2 % (0.0-0.4); Lymphocytes Absolute Auto 2.1 X10*3/uL (1.2-4.9); Lymphocytes Percent Auto 34.4 % (20-40); Mean Corpuscular HGB Conc 31.6 g/dl (31.0-35.0); Mean Corpuscular Hemoglobin 26.6 pg (27.0-33.0); Mean Platelet Volume 11.7 fL (9.4-12.3); Monocytes Absolute Auto 0.4 X10*3/uL (0.1-1.2); Monocytes Percent Auto 7.1 % (2-11); Neutrophils Absolute Auto 3.3 x10*3/uL (2.0-8.3); Neutrophils Percent Auto 53.8 % (45-73); Platelet Count 227 X10*3/uL (160-400); Red Cell Distribution Width 15.6 % (11.0-16.0); White Blood Count 6.1 X10*3/uL (4.8-10.8)
[2024-02-06 14:00] LABS: Appearance Urine Clear; Color Urine Yellow; Glucose Urine UA Negative (Negative); Leukocyte Esterase Urine Small (1+) (Negative); Nitrite Urine Negative (Negative); PH 7.5 (5.0-9.0); Specific Gravity - Urine 1.015 (1.005-1.025); UMIC TRIGGER UACC YES; Urine Blood Negative (Negative); Urine Ketones Negative (Negative); Urine Protein Negative (Neg-Trace)
[2024-02-06 14:21] LABS: Bacteria Urine 4+ (None Seen); Hyaline Casts Urine 0-2 /LPF (0-2); RBC Urine 0-2 /HPF (0-2); Squamous Epithelial Cell Urine 0-2 /HPF (0-2); UACC Culture Trigger YES; WBC Urine >50 /HPF (0-5)
[2024-02-06 14:26] LABS: Alanine Aminotransferase 27 U/L (0-31); Alkaline Phosphatase 69 U/L (39-117); Anion Gap 12 (12-20); Aspartate Amino Transferase 21 U/L (5-31); Bilirubin Total 0.4 mg/dL (0.0-1.0); Blood Urea Nitrogen 7 mg/dL (9-16); Calcium 9.2 mg/dL (8.4-10.2); Carbon Dioxide 26 mmol/L (22-29); Chloride 108 mmol/L (96-108); Cholesterol 229 mg/dL (<200); Estimated Glomerular Filt Rate > 60; Glucose Fasting 86 mg/dL (60-99); HDL Cholesterol 47 mg/dL (>40); LDL Cholesterol Calculated 149 mg/dL (<100); Potassium 4.1 mmol/L (3.3-5.1); Sodium 142 mmol/L (135-145); TSH reflex Free T4 1.56 uIU/mL (0.32-4.0); Total Protein 7.1 g/dL (6.5-8.0); Triglycerides 169 mg/dL (<150); Vitamin D 25-OH Total 52.6 ng/mL (>30)
== END 2024-02-06 10:55 | disposition home or self-care (01) ==
LOC: HO.HMGCLDS 10:54
PROVIDERS: PCP Nurse Practitioner Family; Visit Provider Nurse Practitioner Family
DX: Z00.00 Encounter for general adult medical examination without abnormal findings (principal); Z13.6 Encounter for screening for cardiovascular disorders; E55.9 Vitamin D deficiency, unspecified; R82.90 Unspecified abnormal findings in urine
CPT/HCPCS: 36415; 80053; 80061; 81001; 81003; 82306; 84443; 85025; 87086; 87088; 87186

== ENCOUNTER 2024-02-06 11:26 | Outpatient (AMB) | payer OTHER, SELFPAY ==
[2024-02-06 11:27] VITALS: BP 120/70; PULSE 84; TEMP 36.7; O2SAT 99; BMI 27.5
--- NOTE | 2024-02-06 11:27 | MHC.OFFWIV ---
Intake Vital Signs 02/06/24 11:27 Height 5 ft 3 in Weight 155 lb BMI 27.5 BP 120/70 Blood Pressure Location Lt brachial Position Sitting Pulse 84 Pulse Source Pulse Oximeter Temp 98.0 F Temp Source Temporal Artery Scan Pulse Oximetry (%) 99 Oxygen Delivery Method Room Air Intake Visit Reasons: EP Throat was on medication, made it worse Intake Note: pt is here today for throat on medication started 3 months Patient Tobacco Use Status: Never used Tobacco Allergies No Known Allergies Allergy (Verified 02/06/24 11:32) Do you need a note to return to daycare/school/sports/work: No HPI HPI Comments History of Present Illness Details Patient is a 58-year-old female in today for a sick visit. Patient has had chronic gastric reflux and LPR for the past 3 months. Patient recently tried pantoprazole sodium with no effect. Patient states symptoms are worse in the morning, often has sore throat, frequently gets hoarse voice. 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 Patient has referral in for ENT, wait time is several months. On physical exam patient is throat is cobblestoned erythema. Uvula has erythema as well, no edema. Patient states she has no difficulty swallowing or eating. Denies chest pain, shortness a breath, nausea, vomiting, diarrhea. Patient will be given famotidine, and omeprazole. Patient has been educated that she can use [id number] Mylanta or [place] as directed. Patient can already also utilize gargle with half a tsp baking soda dissolved in 12 oz water. Patient educated that the most important intervention is dietary modification. Stay way from high acid, high fat foods, or foods containing caffeine. Patient should also sleep with the head of her bed at an incline. She should not eat 2-3 hours before bed. 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 Eyes: No Eye Pain, No Swelling, No Redness Cardiovascular : No Chest Pain, No SOB, No Dyspnea on Exertion, No Orthopnea, No Edema, No Palpitations Respiratory : No Cough, No Sputum, No Wheezing Gastrointestinal : No Nausea, No Vomiting, No Diarrhea, No Constipation, No abdominal Pain, No Hematochezia, No Melena, Admits reflux. Neuro : No Weakness, No Numbness, No Dizziness, No Headache Psych : No Anxiety/Panic, No Depression All other systems reviewed and are negative Physical Exam Vital Signs: Last Vital Signs Temp 98.0 F 02/06/24 11:27 Pulse 84 02/06/24 11:27 BP 120/70 02/06/24 11:27 Pulse Ox 99 02/06/24 11:27 Oxygen Delivery Method Room Air 02/06/24 11:27 BMI result Body Mass Index 27.5 Vital signs reviewed stable. Const Other: Appearance: Alert.? Oriented X3.? No acute distress.? Head: Normocephalic, atraumatic, Eyes: Pupils equal, round and reactive to light.? ENT: Pharynx cobblestoned with erythema of posterior pharynx and anterior tonsilar pillar. Neck: Normal inspection.? Neck supple.? CVS: Normal heart rate and rhythm.? Pulses normal.? Respiratory: No respiratory distress.? Breath sounds normal.? Abdomen: Soft and nontender.? Neuro: Oriented X 3.? No motor deficit.? No sensory deficit. CN 2-12 intact Assessment & Plan Assessment & Plan (1) Gastric reflux: Comment: Patient will be given famotidine, and omeprazole. Patient has been educated that she can use [id number] Mylanta or [place] as directed. Patient can also also utilize gargle with half a tsp baking soda dissolved in 12 oz water. Patient educated that the most important intervention is dietary modification. Stay way from high acid, high fat foods, or foods containing caffeine. Patient should also sleep with the head of her bed at an incline. She should not eat 2-3 hours before bed. Code(s): K21.9 - Gastro-esophageal reflux disease without esophagitis Plan: Take your medications as prescribed. If you were prescribed antibiotics today, it is important that you take your medication to their entirety, do not skip any doses, do not finish them early. Follow-up with your primary care provider this week. Return to the emergency department with new or worsening symptoms. Such as fevers, chills, chest pain, shortness of breath, nausea, vomiting, dizziness, headache, vision changes, lethargy In case of emergency call 911 Plan Follow-up with PCP. Medications: New omeprazole Take before bed 20 mg PO DAILY 30 caps 0RF famotidine 20 mg PO DAILY 90 tabs 0RF Discontinued pantoprazole Discontinued Reason: Doctor's Order 40 mg PO DAILY 30 tabs 3RF Coding Level of Care Code Est Pt Level 3 (02604) Diagnoses Gastric reflux K21.9 Time Spent (min) 22
== END 2024-02-06 12:24 | disposition home or self-care (01) ==
PROVIDERS: PCP Nurse Practitioner Family; Visit Provider Nurse Practitioner Primary Care
DX: K21.9 Gastro-esophageal reflux disease without esophagitis (principal)
CPT/HCPCS: 99213

== ENCOUNTER 2024-02-27 13:14 | Outpatient (REF) | payer OTHER, SELFPAY ==
--- NOTE | ~2024-02-27 | CT_ITS ---
EXAMINATION: CT ABDOMEN AND PELVIS WITH CONTRAST CLINICAL INFORMATION: Abdominal discomfort COMPARISON: 11/14/2013 TECHNIQUE: Multidetector volumetric images were obtained from the superior aspect of the liver through the pubic symphysis following administration 85 mL of Omnipaque 350 intravenous contrast. Sagittal and coronal reformatted images were obtained on the technologist's workstation. Oral contrast: Yes This CT examination was performed using dose optimization techniques as appropriate, variously including the following: *Automated exposure control *Adjustment of mA and/or kV according to patient size (this includes techniques or standardized protocols for targeted exams where dose is matched to indication/reason for exam; i.e. extremities or head) *Use of iterative reconstruction technique DLP: 411 mGy-cm FINDINGS: LUNG BASES: Redemonstration of asymmetric elevation of the left hemidiaphragm. ABDOMINAL AND PELVIC WALL: Unremarkable. LIVER AND BILIARY TREE: Hepatic steatosis. No focal hepatic lesion or intrahepatic biliary ductal dilatation. GALLBLADDER: Status post cholecystectomy. PANCREAS: Unremarkable. SPLEEN: Unremarkable. ADRENAL GLANDS: Unremarkable. KIDNEYS AND URETERS: Nonobstructing right lower pole 3 mm renal stone. GASTROINTESTINAL TRACT: Unremarkable. Appendix is within normal limits. VASCULAR: Unremarkable. LYMPH NODES/PERITONEUM: No lymphadenopathy. FREE FLUID: None. BLADDER: Unremarkable. PELVIC VISCERA: Unremarkable. OSSEOUS STRUCTURES: Unremarkable. CT/CT abdomen pelvis w IV con IMPRESSION: * No acute intra-abdominal abnormality. * Hepatic steatosis.
[2024-02-27] MEDS: iohexoL 350 MG/ML 75 ML INFUS..BTL 85 ML IV (15:52)
[2024-02-27] MEDS: Barium Sulfate Oral (Berry) 450 ML ORAL.SUSP 900 ML PO (15:52)
== END 2024-02-27 13:15 | disposition home or self-care (01) ==
LOC: HO.CT 13:14
PROVIDERS: PCP Nurse Practitioner Family; Visit Provider Nurse Practitioner Family
DX: R10.9 Unspecified abdominal pain (principal); J98.6 Disorders of diaphragm
CPT/HCPCS: 74177; Q9967

== ENCOUNTER 2024-04-02 12:59 | Outpatient (REF) | payer OTHER, SELFPAY ==
[2024-04-02 17:29] LABS: Bacterial Vaginosis PCR NEGATIVE (Negative); Candida Group PCR NOT DETECTED (Not Detect); Candida glab krusei PCR NOT DETECTED (Not Detect); Trichomonas vaginalis PCR NOT DETECTED (Not Detect)
[2024-04-09 12:49] LABS: HPV mRNA E6/E7 rflx Not Detected (Not Detected)
== END 2024-04-02 13:00 | disposition home or self-care (01) ==
LOC: HO.LNP 12:59
PROVIDERS: PCP Nurse Practitioner Family; Visit Provider Advanced Practice Midwife
DX: Z01.419 Encounter for gynecological examination (general) (routine) without abnormal findings (principal)
CPT/HCPCS: 0352U; 87624; 88142

== ENCOUNTER 2024-04-02 12:59 | Outpatient (AMB) | payer OTHER, SELFPAY ==
[2024-04-02 13:15] VITALS: BP 102/58; BMI 27.1
--- NOTE | 2024-04-02 13:15 | MHC.OFFVIS ---
Vital Signs 04/02/24 13:15 Height 5 ft 3 in Weight 153 lb BMI 27.1 BP 102/58 L Intake Visit Reasons: New patient Annual Intake Note: Has been having some white discharge and not sexually active. Household Personal Assistant Required: No Information Interpreted: non-clinical & clinical Object Oriented Developer: Object Oriented Developer Present (Graham) Allergies No Known Allergies Allergy (Verified 04/02/24 13:25) Is last menstrual period known: No Post menopausal: Yes Patient : No HPI Comments Details: She is a postmenopausal woman presenting for her new patient annual device test engineer examination. She is doing well with no concerns. Attempting to eat a healthy diet with calcium and vitamin D and stays active with exercise. Currently not sexually active, has medical concerns. Denies any vaginal dryness or irritation. STI testing offered; she declines. Last pap smear; 2016, ASCUS. LMP: 10yrs. ago. Last mammogram; 2022. Colonoscopy is UTD. Denies any family history of breast, ovarian or colon cancer. 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 Current occupational exposures/hazards: No Cognitive needs: No Hearing needs: No Vision needs: No Female Reproductive History Menstrual Age of Menarche: 12 control method: permanent sterilization Total pregnancies: 4 Full term: 3 Number of Living Children: 3 Ab spontaneous: 1 Date of last pap smear: 12/14/16 (negative) Date of Mammogram: 11/01/23 Review of Systems Const All systems reviewed & are unremarkable except as noted in HPI and below Reports as per HPI Eyes Reports no additional complaints ENT Reports no additional complaints Card Reports no additional complaints Resp Reports no additional complaints GI Reports as per HPI and Reports no additional complaints Reports as per HPI Musc Reports no additional complaints Skin/Breast Reports as per HPI Neuro Reports no additional complaints Psych Reports no additional complaints Endo Reports no additional complaints Piter/Lymph Reports no additional complaints Aller/Immun Reports no additional complaints Physical Exam Vital Signs: Last Vital Signs BP 102/58 L 04/02/24 13:15 BMI result Body Mass Index 27.1 Const General: cooperative, healthy appearing, no acute distress, well developed and alert Orientation/consciousness: patient oriented x3 HEENT Head: Yes normal to inspection Eyes General: appearance normal, both eyes and all related structures Neck Neck: Yes normal visual inspection Thyroid: Thyroid normal Chest Chest palpation & inspection: normal inspection of the chest and other (no puckering, dimpling, peau de orange, retraction, discharge, masses) Breast/axilla inspection: normal inspection of the breasts Breast/axilla palpation: normal palpation of the breasts Resp Effort & Inspection: normal respiratory effort GI Inspection: Yes normal to inspection Palpation (GI): Soft to palpation Rectal Exam - Female: deferred General: Yes bladder normal to palpation External Female Exam: normal external appearance and normal appearance of the urethra Speculum Exam - Vagina: normal appearance of the vagina, normal palpation and normal vaginal discharge Speculum Exam - Cervix: normal appearance of the cervix and normal palpation Bimanual exam- vagina & uterus: normal bimanual exam, normal palpation, uterine size normal, bladder normal to palpation, normal palpation and non-tender Bimanual Exam- Adnexa, other: no masses Skin General skin exam: no rashes or lesions noted Rashes: no rashes Neuro General: patient oriented x3 Cognition (Neuro): normal cognition Extrem General: Yes normal to inspection Psych Attitude: cooperative Thought process: Normal thought process present Assessment & Plan Assessment & Plan (1) Encounter for well woman exam with routine gynecological exam: Code(s): Z01.419 - Encounter for gynecological examination (general) (routine) without abnormal findings Category: Medical Plan: Discussed: Current recommendations for pap smears per ASCCP guidelines. Breast awareness, periodic self breast exams and yearly mammogram. Maintain a healthy lifestyle, well balanced diet including Calcium 1,200 mg and Vitamin D 600 IU daily, and routine exercise. Intimacy concerns, suggestions of use of Replens moisturizer, literature book options on the topic, website reference if interested for Benny LAUREANO. Contact the office with any postmenopausal bleeding. Patient verbalizes understanding and agrees to the plan of care. She was given opportunity to ask questions and all questions were answered to the best of my ability. RTO in 1 year for annual device test engineer exam. This note is constructed using voice recognition software. While every effort has been made to ensure accuracy, stylist apprentice errors may have been included. Orders: Orders Pap Smear Today Z01.419 - Encounter for gynecological examination (general) (routine) without abnormal findings Bacterial Vaginosis Panel Today Z01.419 - Encounter for gynecological examination (general) (routine) without abnormal findings Coding Level of Care Code New Pt Prev Care 40-64y(70138) Diagnoses Encounter for well woman exam with routine gynecological exam Z01.419
== END 2024-04-02 14:28 | disposition home or self-care (01) ==
PROVIDERS: PCP Nurse Practitioner Family; Visit Provider Advanced Practice Midwife
DX: Z01.419 Encounter for gynecological examination (general) (routine) without abnormal findings (principal)
CPT/HCPCS: 99386

== ENCOUNTER 2024-05-17 10:45 | Outpatient (REF) | payer OTHER, SELFPAY ==
[2024-05-17 13:39] LABS: Alanine Aminotransferase 21 U/L (0-31); Albumin Level 4.2 g/dL (3.5-5.0); Alkaline Phosphatase 82 U/L (39-117); Anion Gap 10 (12-20); Aspartate Amino Transferase 21 U/L (5-31); Bilirubin Total 0.5 mg/dL (0.0-1.0); Blood Urea Nitrogen 10 mg/dL (9-16); Calcium 9.3 mg/dL (8.4-10.2); Carbon Dioxide 29 mmol/L (22-29); Chloride 106 mmol/L (96-108); Cholesterol 205 mg/dL (<200); Estimated Glomerular Filt Rate > 60; Glucose Fasting 85 mg/dL (60-99); HDL Cholesterol 48 mg/dL (>40); LDL Cholesterol Calculated 133 mg/dL (<100); Potassium 3.8 mmol/L (3.3-5.1); Sodium 141 mmol/L (135-145); Total Protein 7.6 g/dL (6.5-8.0); Triglycerides 122 mg/dL (<150)
== END 2024-05-17 10:46 | disposition home or self-care (01) ==
LOC: HO.HMGCLDS 10:45
PROVIDERS: PCP Nurse Practitioner Family; Visit Provider Nurse Practitioner Family
DX: E78.5 Hyperlipidemia, unspecified (principal)
CPT/HCPCS: 36415; 80053; 80061

== ENCOUNTER 2024-09-24 11:32 | Outpatient (REF) | payer OTHER, SELFPAY | END 2024-09-24 11:33 | disposition home or self-care (01) | LOC: HO.HMGCX 11:32 | PROVIDERS: PCP Nurse Practitioner Family; Visit Provider Internal Medicine | DX: M79.671 Pain in right foot (principal); M72.2 Plantar fascial fibromatosis; R10.13 Epigastric pain; R14.0 Abdominal distension (gaseous); R14.2 Eructation | CPT/HCPCS: 73630; 96127; 99212 ==

== ENCOUNTER 2024-09-24 11:32 | Outpatient (AMB) | payer OTHER, SELFPAY ==
[2024-09-24 11:34] VITALS: BP 106/62; PULSE 82; O2SAT 98; BMI 27.2
--- NOTE | 2024-09-24 11:34 | A.OFFPC_ITS ---
Vital Signs 09/24/24 11:34 Height 5 ft 3 in Weight 153 lb 8 oz BMI 27.2 BP 106/62 Blood Pressure Location Rt brachial Position Sitting Pulse 82 Pulse Source Pulse Oximeter Pulse Oximetry (%) 98 Oxygen Delivery Method Room Air Intake Visit Reasons: PainOnHeel Allergies No Known Allergies Allergy (Verified 09/24/24 11:41) Medication List - Last Reconciled 09/24/24 by Vaishnavi Buitrago MD famotidine 20 mg PO DAILY omeprazole 20 mg PO BEDTIME Tobacco use date assessed: 09/24/24 Dental Screening Dental Screen Date: 09/24/24 Did you have a dental visit in the last 12 months?: Yes Did you have a dental problem in the last 6 months where you did not have access to dental care?: No Was dental information given to patient?: Patient has dentist HPI PainOnHeel HPI Details Patient is 59-year-old female came in today to be evaluated for pain right foot and heel Which started 1 month ago Patient mostly wear heels at work On examination she has pain mostly over the arch of right foot and heel She is able to fully flex and extend the foot Able to move dose Also complaining of feeling epigastric discomfort with belching She does agree to eating a lot of processed food and not on the right times I see she has omeprazole already listed in her medication list by her primary care I have sent refill only this time she will be taking it 2 times a day But most importantly patient need to start eating healthy and stopped eating 4 hours before bedtime I have sent meloxicam 15 mg to be taken with food for 2 weeks And prednisone 20 mg once a day for 5 days X-ray of foot ordered Proper footwear was discussed with the patient Podiatry referral is also placed [facility] Medical History Abnormal Pap smear of cervix Elevated alkaline phosphatase level Surgical History Hx of tubal ligation Hx of cholecystectomy Hx of section Family History Mother Heart attack Father Heart attack Social History Housing: House Patient Tobacco Use Status: Never used Tobacco e-Cigarette/Vaping Use: Never Used Second Hand Smoke Exposure: No service: No Current occupational status: employed 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 1. Little interest or pleasure in doing things: not at all 2. Feeling down, depressed, or hopeless: not at all 3. Trouble falling or staying asleep, or sleeping too much: not at all 4. Feeling tired or having little energy: not at all 5. Poor appetite or overeating: not at all 6. Feeling bad about yourself - or that you are a failure or have let yourself or your family down: not at all 7. Trouble concentrating on things, such as reading the newspaper or watching television: not at all 8. Moving or speaking so slowly that other people could have noticed. Or the opposite - being so fidgety or restless that you have been moving around a lot more than usual: not at all 9. Thoughts that you would be better off or of hurting yourself in some way: not at all Total score: 0 Depression Screening Interpretation: Negative Depression Screening Done: Yes 55241 - PHQ-9 Billing: Yes Source: Developed by Drs. David Austin, Tita Richey, Isra Cordero and colleagues, with an educational chelsea from [employer]. Thrive Questionnaire Date Thrive assessed: 09/24/24 I am a: Patient What is your living situation today?: I have a steady place to live Within the past 12 months, did the food you bought not last and you didn't have the money to get more?: Never true Within the past 12 months, did you worry whether your food would run out before you got money to buy more?: Never true Do you have trouble paying for medicines?: No Do you have trouble getting transportation to medical appointments?: No Do you have trouble paying your heating and electricity bill?: No Do you have trouble taking care of your child, family member or friend?: No Do you have trouble with day-to-day activities such as bathing, preparing meals, shopping, managing finances, etc.?: No Are you currently unemployed and looking for a job?: No Are you interested in more education?: No Please select the resources that you would like help with: None Currently or been in a relationship where the following occur: No concerns reported THRIVE Score: 0 AUDIT C Alcohol Use Questionnaire (AUDIT-C) 1. How often do you have a drink containing alcohol?: Never 3. How often do you have six or more drinks on one occasion?: Never Total Score: 0 Score Reviewed/Action Taken: Yes YUMIKO-7 AMB Questionnaire YUMIKO-7 Date YUMIKO - 7 assessed: 09/24/24 Feeling nervous, anxious, or on edge: 0 = Not at all Not being able to stop or control worryin = Not at all Worrying too much about different things: 0 = Not at all Trouble relaxin = Not at all Being so restless that it is hard to sit still: 0 = Not at all Becoming easily annoyed or irritable: 0 = Not at all Feeling afraid as if something awful might happen: 0 = Not at all Total YUMIKO-7 score (0-4 normal; 5-9 mild; 10-14 moderate; 15-21 severe): 0 Source: Developed by Drs. David Austin, Tita Richey, Isra Cordero and colleagues, with an educational chelsea from [employer]. YUMIKO-7 Assessment Billing YUMIKO-7 Assessment Tool: YUMIKO-7 Assessment 29956 Review of Systems Const All systems reviewed & are unremarkable except as noted in HPI and below Physical exam (Primary Care) Vital Signs: Last Vital Signs Pulse 82 09/24/24 11:34 BP 106/62 09/24/24 11:34 Pulse Ox 98 09/24/24 11:34 Oxygen Delivery Method Room Air 09/24/24 11:34 BMI result Body Mass Index 27.2 Tobacco/Smoking Status: Tobacco use Status Tobacco use date assessed 09/24/24 09/24/24 11:41 Patient Tobacco Use Status Never used Tobacco 09/24/24 11:34 e-Cigarette/Vaping Use Never Used 09/24/24 11:34 PHQ-9: PHQ-9 Score PHQ-9: Total score 0 09/24/24 11:41 Depression Screening Interpretation: Negative Thrive Assessment: Date of Thrive Assessment Date Thrive assessed 09/24/24 09/24/24 11:41 Currently or been in a relationship where the following occur: No concerns reported Const General: no acute distress Orientation/consciousness: patient oriented x3 Eyes General: appearance normal, both eyes and all related structures Resp Effort & Inspection: normal respiratory effort and able to speak in complete se ntences GI Other: Soft nontender Neuro General: patient oriented x3 Extrem Other: Pain over arch of right foot, range of motion ankle full without pain Psych Mental Status: mental status grossly normal Coding Level of Care Code Est Pt Level 4 (31216) Diagnoses Foot pain, right M79.671 Plantar fasciitis, right M72.2 Epigastric discomfort R10.13 Abdominal bloating R14.0 Belching R14.2 Additional Codes YUMIKO-7 Assessment Billing - YUMIKO-7 Assessment Tool: YUMIKO-7 Assessment 83939 ([id number]) Assessment & Plan Assessment & Plan (1) Foot pain, right: Code(s): M79.671 - Pain in right foot Category: Medical (2) Plantar fasciitis, right: Code(s): M72.2 - Plantar fascial fibromatosis Category: Medical (3) Epigastric discomfort: Code(s): R10.13 - Epigastric pain Category: Medical (4) Abdominal bloating: Code(s): R14.0 - Abdominal distension (gaseous) Category: Medical (5) Belching: Code(s): R14.2 - Eructation Category: Medical Plan Patient is 59-year-old female came in today to be evaluated for pain right foot and heel Which started 1 month ago Patient mostly wear heels at work On examination she has pain mostly over the arch of right foot and heel She is able to fully flex and extend the foot Able to move dose Also complaining of feeling epigastric discomfort with belching She does agree to eating a lot of processed food and not on the right times I see she has omeprazole already listed in her medication list by her primary care I have sent refill only this time she will be taking it 2 times a day But most importantly patient need to start eating healthy and stopped eating 4 hours before bedtime I have sent meloxicam 15 mg to be taken with food for 2 weeks And prednisone 20 mg once a day for 5 days X-ray of foot ordered Proper footwear was discussed with the patient Podiatry referral is also placed Orders: Orders 2 XR foot RT 2V Today M79.671 - Pain in right foot Referrals Podiatry Referral M72.2 - Plantar fascial fibromatosis Medications: New meloxicam 15 mg PO DAILY 15 days 15 tabs 0RF prednisone 20 mg PO DAILY 5 days 5 tabs 0RF Changed From omeprazole 20 mg PO BEDTIME 90 caps 0RF To omeprazole 20 mg PO BID 90 days 180 caps 0RF
== END 2024-09-24 13:17 | disposition home or self-care (01) ==
LOC: HO.HMCC 11:32
PROVIDERS: PCP Nurse Practitioner Family; Visit Provider Internal Medicine
DX: M79.671 Pain in right foot (principal); M72.2 Plantar fascial fibromatosis; R10.13 Epigastric pain; R14.0 Abdominal distension (gaseous); R14.2 Eructation

== ENCOUNTER 2024-10-07 08:41 | Outpatient (AMB) | payer OTHER, SELFPAY ==
--- NOTE | 2024-10-06 15:32 | A.OFFVIS_ITS ---
Intake Visit Reasons: 1y follow up Intake Note: Patient presents today for a 1Y follow-up Meds- None Allergies to Antibiotic- No Known Allergies Blood Thinner- None Director Perioperative Required: No Accompanied by: Self / Same As Patient Allergies No Known Allergies Allergy (Verified 10/07/24 08:42) Medication List - Last Reconciled 10/07/24 by Harsha Deng MD famotidine 20 mg PO DAILY meloxicam 15 mg PO DAILY 15 days omeprazole 20 mg PO BID 90 days HPI Comments Details: 10/07/24--Jessica is a 59-year-old female who presents today to the office for a follow-up. Annual KUB not done. however pt states she is doing well. She is not sure if she passed the stone since February. Denies any irritative voiding symptoms of blood in the urine or flank pain. Plan follow-up in 1 year renal ultrasound prior CTAP - 02/27/24--KIDNEYS AND URETERS: Nonobstructing right lower pole 3 mm renal stone. Review of chart: 10/06/2023?She is followed today for kidney stones. She was last seen by [facility], Kamlesh Estrada for nephrolithiasis on 12/09/2021. Patient states that she is not on any medications at this time. She states that she is drinking 2 to 2.5 L of water daily. She also adds lemon to the water. Patient denies any urinary symptoms at this time Reviewed KUB -Xray - 10/02/23-- Right kidney 3 mm stone - unchanged from prior renal US 10/06/2023: Plan: Continue monitoring kidney stones. Follow-up in one year and will recheck KUB X-ray at that time. 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 Current occupational exposures/hazards: No Cognitive needs: No Hearing needs: No Vision needs: No Female Reproductive History Menstrual Age of Menarche: 12 Review of Systems Const All systems reviewed & are unremarkable except as noted in HPI and below Reports no additional complaints Eyes Reports no additional complaints ENT Reports no additional complaints Card Reports no additional complaints Resp Reports no additional complaints GI Reports no additional complaints Reports as per HPI Musc Reports no additional complaints Skin/Breast Reports system reviewed and no additional complaints, except as documented Neuro Reports no additional complaints Psych Reports no additional complaints Endo Reports no additional complaints Piter/Lymph Reports no additional complaints Aller/Immun Reports no additional complaints Telehealth Telehealth Telehealth Platform: [email or web address] Location of provider rendering services: practice address Location of patient: address on file Patient Identification confirmed using: Name, : Yes Telehealth method: voice only Patient verbally consented to treatment: Yes Patient verbally consented to billing insurance company: Yes Patient informed of any privacy concerns related to visit: Yes Minutes spent on Phone/Video with Pt.: 15 Results Reviewed Results Reviewed: Date of Service: 02/27/24 CT ABDOMEN AND PELVIS WITH CONTRAST CLINICAL INFORMATION: Abdominal discomfort COMPARISON: 11/14/2013 TECHNIQUE: Multidetector volumetric images were obtained from the superior aspect of the liver through the pubic symphysis following administration 85 mL of Omnipaque 350 intravenous contrast. Sagittal and coronal reformatted images were obtained on the technologist's workstation. Oral contrast: Yes This CT examination was performed using dose optimization techniques as appropriate, variously including the following: *Automated exposure control *Adjustment of mA and/or kV according to patient size (this includes techniques or standardized protocols for targeted exams where dose is matched to indication/reason for exam; i.e. extremities or head) *Use of iterative reconstruction technique DLP: 411 mGy-cm FINDINGS: LUNG BASES: Redemonstration of asymmetric elevation of the left hemidiaphragm. ABDOMINAL AND PELVIC WALL: Unremarkable. LIVER AND BILIARY TREE: Hepatic steatosis. No focal hepatic lesion or intrahepatic biliary ductal dilatation. GALLBLADDER: Status post cholecystectomy. PANCREAS: Unremarkable. SPLEEN: Unremarkable. ADRENAL GLANDS: Unremarkable. KIDNEYS AND URETERS: Nonobstructing right lower pole 3 mm renal stone. GASTROINTESTINAL TRACT: Unremarkable. Appendix is within normal limits. VASCULAR: Unremarkable. LYMPH NODES/PERITONEUM: No lymphadenopathy. FREE FLUID: None. BLADDER: Unremarkable. PELVIC VISCERA: Unremarkable. OSSEOUS STRUCTURES: Unremarkable. IMPRESSION: * No acute intra-abdominal abnormality. Date of Service: 10/02/23 EXAMINATION: XR ABDOMEN KUB CLINICAL INDICATION: Renal calculi. COMPARISON: Renal ultrasound 07/13/2022. FINDINGS: Surgical clips are present in the gallbladder fossa. There is a 3 mm sized calcification overlying the lower pole of the right kidney which could represent a 3 mm calculus seen on the 07/13/2022 ultrasound in the same location. The bowel gas pattern is normal with no evidence of ileus or obstruction. No unusual soft tissue calcifications are noted. The bones are unremarkable. IMPRESSION: Question of a 3 mm calculus in the lower pole of the right kidney. Assessment & Plan Assessment & Plan (1) Kidney stone: Code(s): N20.0 - Calculus of kidney Category: Medical Plan Continue monitoring kidney stones. Denies any irritative voiding symptoms of blood in the urine or flank pain. Plan follow-up in 1 year renal ultrasound prior CTAP - 02/27/24--KIDNEYS AND URETERS: Nonobstructing right lower pole 3 mm renal stone. Orders: Orders US renal BI 10 Months N20.0 - Calculus of kidney Patient Instructions: The patient had an opportunity to ask questions regarding treatment plan. The patient expressed understanding and agreement with the above treatment plan. The patient is aware they should contact our office by phone for worsening of their current condition or the appearance of new symptoms. Compliance is encouraged with any medications and followup testing that is ordered. It is a privilege to be allowed the opportunity to participate in the urologic care of your patient. If you have any questions or concerns regarding treatment for the above conditions please do not hesitate to contact me. The office telephone contact is [phone]. This note is constructed in part using voice recognition software. While every effort has been made to ensure accuracy grubber errors may have been included. Yours sincerely, Harsha Deng MD Coding Level of Care Code Tele Est Pt Level 3 (90782) Diagnoses Kidney stone N20.0
== END 2024-10-07 09:57 | disposition home or self-care (01) ==
LOC: HO.HUSH 08:41
PROVIDERS: PCP Nurse Practitioner Family; Visit Provider Urology
DX: N20.0 Calculus of kidney (principal)
CPT/HCPCS: 99213

== ENCOUNTER → 2024-10-07 08:41 | Outpatient (BNVA) | payer OTHER, SELFPAY | PROVIDERS: PCP Nurse Practitioner Family; Visit Provider Urology ==